=== PATIENT | male | born 1970 | race Two or more races ===

== ENCOUNTER 2020-08-23 10:51 | Emergency (ER) | payer MEDICAID, OTHER ==
[~2020-08-23] VITALS: Ht 165.1 cm; Wt 81.2 kg
[2020-08-23 10:54] VITALS: BP 151/110
[2020-08-23] MEDS ORDERED: ACETAMINOPHEN 325 MG TAB PO ONE (11:30)
[2020-08-23] MEDS ORDERED: ONDANSETRON ODT 4 MG TAB PO ONE (12:00)
== END 2020-08-23 12:12 | disposition home or self-care (01) ==
LOC: ER 10:51
DX: B02.23 Postherpetic polyneuropathy (principal); R42 Dizziness and giddiness; I10 Essential (primary) hypertension
CPT/HCPCS: 70450; 93005; 99284; Q0162